=== PATIENT | male | born 1985 | race African-American/Black ===

== ENCOUNTER 2017-11-11 15:39 | Emergency (ER) | payer BC ==
[2017-11-11 16:04] VITALS: BP 128/73; PULSE 70; TEMP 98.4; BMI 25.9
[2017-11-11] MEDS ORDERED: DIPHTH,PERTUSS(ACELL),TET 0.5 ML DISP.SYRIN IM ONE (17:14)
--- NOTE | 2017-11-11 17:19 | PDOC ---
History of Present Illness - General Chief Complaint: Injury Stated Complaint: HEAD INJURY, LIGHTHEADED Time Seen by Provider: 11/11/17 16:38 History Source: Patient Exam Limitations: No Limitations - History of Present Illness Initial Comments: 11/11/17 17:18 While performing changes to moves, rolled away from opponent and collided with his head to heavy metal pole. Patient states was dazed at the time but there was no LOC, had no nasal injury, no bleeding from nose or ears. No visual changes. States had some bleeding from his forehead which she stopped with pressure on and off throughout the morning. Cleaned with soap and water. Denies any other injury. Occurred: reports: this morning Severity: reports: mild, moderate Pain Location: reports: face, head Method of Injury: Yes: direct blow Modifying Factors: improves with: None, cold therapy, pain medication Loss of Consciousness: no loss of consciousness Associated Symptoms (Fall): denies symptoms Past History - Travel Traveled outside of the country in the last 30 days: No Close contact w/someone who was outside of country & ill: No - Past Medical History Allergies/Adverse Reactions: Allergies Allergy/AdvReac Type Severity Reaction Status Date / Time Penicillins Allergy Verified 11/11/17 16:04 Home Medications: Ambulatory Orders NK [No Known Home Medication] 07/30/16 COPD: No - Suicide/Smoking/Psychosocial Hx Smoking History: Never smoked Information on smoking cessation initiated: No Hx Alcohol Use: No Drug/Substance Use Hx: No Substance Use Type: None Trauma Specific PMHX - Complaint Specific PMHX Back Injury: No Neck Injury: No Review of Systems - Review of Systems Able to Perform ROS?: Yes Is the patient limited [place]an proficient: Yes Constitutional: Yes: See HPI. No: Symptoms Reported, Fever, Malaise HEENTM: Yes: See HPI. No: Symptoms Reported, Eye Pain, Tearing, Nose Congestion Musculoskeletal: Yes: See HPI. No: Symptoms Reported Integumentary: Yes: Symptoms Reported, See HPI, Bruising, Lesions All Other Systems: Reviewed and Negative *Physical Exam - Vital Signs Last Vital Signs Temp Pulse Resp BP Pulse Ox 98.4 F 70 18 128/73 100 11/11/17 16:01 11/11/17 16:01 11/11/17 16:01 11/11/17 16:01 11/11/17 16:01 - Physical Exam General Appearance: Yes: Nourished, Appropriately Dressed, Apparent Distress, Mild Distress HEENT: positive: JULIUS, TMs Normal, Pharynx Normal (no hemotympanum, no drainage from nose or ears, no evidence of skull fracture). negative: Tonsillar Erythema , Rhinorrhea Neck: positive: Supple. negative: Tender Respiratory/Chest: positive: Lungs Clear Integumentary: positive: Normal Color, Pale, Other (1 cm superficial laceration midpoint forehead with hematoma circumferentially approximately 2 cm. No crepitus or step-offs, no bogginess, no active bleeding. No orbital tenderness, no evidence of skull fracture.) Neurologic: positive: javascript programmer II-XII NML intact, Fully Oriented, Alert, Normal Mood/ Affect, Normal Response, Motor Strength 5/5 Progress Note - Progress Note Progress Note: Superficial head injury with superficial laceration midpoint forehead. Is greater than 10 hours old but also superficial. Cleaned and Steri-Strips applied to approximate edges of wound. Patient encouraged to use ice to help resolve hematoma. Tetanus/diphtheria/pertussis booster updated today. Given instructions about head injury symptoms and things to precaution against. Will use Tylenol or Motrin for pain relief *DC/Admit/Observation/Transfer Diagnosis at time of Disposition: Laceration of face Qualifiers: Encounter type: initial encounter Qualified Code(s): S01.81XA - Laceration without foreign body of other part of head, initial encounter Superficial head injury Qualifiers: Encounter type: initial encounter Qualified Code(s): S00.90XA - Unspecified superficial injury of unspecified part of head, initial encounter - Discharge Dispostion Disposition: HOME Condition at time of disposition: Stable Admit: No - Referrals Referrals: Nikunj Rosenberg MD [Primary Care Provider] - - Patient Instructions Printed Discharge Instructions: DI for Closed Head Injury, DI for Laceration Repair Steri-Strips Additional Instructions: Rest, avoid strenuous activity or exercise for the next 24-48 hours May use ice on contusions as needed. May use Tylenol or Motrin for pain relief Watch and seek evaluation for changes in behavior including crankiness, inconsolability, quietness/ sleepiness that is inappropriate, tiredness that is inappropriate, watch for worsening and changes of behavior. Seek immediate evaluation/return to emergency department for vomiting, mental status changes, pain that's out of proportion , bloody drainage from ears or nose. Followup with private physician as needed in one to 2 days for reevaluation Your tetanus/diphtheria/pertussis booster was updated today - Post Discharge Activity Forms/Work/School Notes: Back to Work
== END 2017-11-11 17:19 | disposition home or self-care (01) ==
LOC: JERFT 15:39
PROC: 3E0234Z Introduction of Serum, Toxoid and Vaccine into Muscle, Percutaneous Approach (ICD-10-PCS; principal; 2017-11-11)
DX: S01.81XA Laceration without foreign body of other part of head, initial encounter (principal); S00.83XA Contusion of other part of head, initial encounter; W22.8XXA Striking against or struck by other objects, initial encounter; Y93.75 Activity, martial arts; Y92.39 Other specified sports and athletic area as the place of occurrence of the external cause; Y99.8 Other external cause status
CPT/HCPCS: 90715; 99281-25

== ENCOUNTER 2018-07-20 15:01 | Emergency (ER) | payer BC ==
[2018-07-20 15:15] VITALS: BP 130/73; PULSE 77; TEMP 98.3; BMI 26.6
--- NOTE | 2018-07-20 15:29 | PDOC ---
History of Present Illness - General Chief Complaint: Back Pain Stated Complaint: LOWER BACK PAIN Time Seen by Provider: 07/20/18 15:20 History Source: Patient - History of Present Illness Initial Comments: 07/20/18 15:48 32 year old female c/o lower back pain for several months. seen by Dr. deal given ibuprofen. patient reports CT scan of back and abdomen negative, was done this past week. Past History - Past Medical History Allergies/Adverse Reactions: Allergies Allergy/AdvReac Type Severity Reaction Status Date / Time Penicillins Allergy Verified 07/20/18 15:11 Home Medications: Ambulatory Orders Cyclobenzaprine HCl [Flexeril 10 mg] 10 mg PO BID PRN #14 tablet 07/20/18 COPD: No Other medical history: DENIES. - Suicide/Smoking/Psychosocial Hx Smoking History: Never smoked Hx Alcohol Use: No Drug/Substance Use Hx: No Substance Use Type: None *Physical Exam - Vital Signs Last Vital Signs Temp Pulse Resp BP Pulse Ox 98.3 F 77 18 130/73 98 07/20/18 15:11 07/20/18 15:11 07/20/18 15:11 07/20/18 15:11 07/20/18 15:11 - Physical Exam General Appearance: Yes: Appropriately Dressed Musculoskeletal: positive: Normal Inspection, Muscle Spasm. negative: CVA Tenderness Extremity: positive: Normal Capillary Refill, Normal Inspection, Normal Range of Motion Integumentary: positive: Normal Color, Dry, Warm Neurologic: positive: Fully Oriented, Alert, Normal Mood/Affect Moderate Sedation - Procedure Monitoring Vital Signs: Procedure Monitoring Vital Signs Temperature 98.3 F 07/20/18 15:11 Pulse Rate 77 07/20/18 15:11 Respiratory Rate 18 07/20/18 15:11 Blood Pressure 130/73 07/20/18 15:11 O2 Sat by Pulse Oximetry (%) 98 07/20/18 15:11 *DC/Admit/Observation/Transfer Diagnosis at time of Disposition: Lower back pain Qualifiers: Chronicity: acute Back pain laterality: bilateral Sciatica presence: without sciatica Qualified Code(s): M54.5 - Low back pain - Discharge Dispostion Disposition: HOME - Prescriptions Prescriptions: Cyclobenzaprine HCl [Flexeril 10 mg] 10 mg PO BID PRN #14 tablet PRN Reason: Muscle Spasms - Referrals Referrals: Nikunj Deal MD [Primary Care Provider] - Kendell Hernandez MD [Staff Physician] - - Patient Instructions Printed Discharge Instructions: DI for Muscle Strain Additional Instructions: drink plenty of fluids. take ibuprofen as prescribed. take flexeril as prescribed. do not drive or use heavy machinery after taking the medication apply ice to the Area - Post Discharge Activity Forms/Work/School Notes: Back to Work
[2018-07-20] MEDS ORDERED: KETOROLAC TROMETHAMINE 60 MG/2 ML VIAL IM ONE (15:42)
[2018-07-20] MEDS ORDERED: KETOROLAC TROMETHAMINE 60 MG/2 ML VIAL ONE (15:46)
[2018-07-20 16:08] LABS: URINE APPEARANCE CLEAR; URINE BILIRUBIN NEGATIVE (<2.0 mg/dL); URINE COLOR STRAW; URINE GLUCOSE (UA) NEGATIVE (NEGATIVE); URINE KETONE NEGATIVE (NEGATIVE); URINE LEUK ESTERASE NEGATIVE (NEGATIVE); URINE NITRITE NEGATIVE (NEGATIVE); URINE PROTEIN NEGATIVE (NEGATIVE); URINE UROBILINOGEN NEGATIVE mg/dL (0.2-1.0)
== END 2018-07-20 16:43 | disposition home or self-care (01) ==
LOC: JERFT 15:01
PROC: 3E0233Z Introduction of Anti-inflammatory into Muscle, Percutaneous Approach (ICD-10-PCS; principal; 2018-07-20)
DX: M54.5 Low back pain (principal)
CPT/HCPCS: 81003; 99281-25